=== PATIENT | male | born 1995 | race Hispanic/Latino ===

== ENCOUNTER 2020-12-22 17:51 | Emergency (ER) | payer OTHER, MEDICAID, SELFPAY ==
--- NOTE | 2020-12-22 17:55 | ED.PSYCH ---
HPI - Psych <Zack Reyes DO - Last Filed: 12/24/20 02:41> General Chief Complaint: Psychiatric Symptoms Stated Complaint: Phyc. Time Seen by Provider: 12/22/20 17:53 Source: patient, EMS and police Mode of arrival: EMS Limitations: no limitations History of Present Illness HPI Narrative: 24M without known medical history or social history presents by EMS/PD with chief complaint of aggressive and altered behavior. It is unclear who called 911, they suggest with girlfriend or mother. There is very little in the report other than he is acting strangely. Mother was gone for awhile and came home to find him acting very oddly. No known drug history. No obvious signs of trauma. MD complaint: altered mental status Onset (ago): hour(s) Duration: constant History of same: No Relieving factors: none Exacerbating factors: none Associated psychiatric symptoms: none Treatments prior to arrival: physical restraints Related Data Home Medications Medication Instructions Recorded Confirmed No Known Home Medications 12/23/20 12/23/20 Review of Systems <Zack Reyes DO - Last Filed: 12/24/20 02:41> Review of Systems Narrative: patient will not participate in ROS, elements in documentation are per family, EMS, PD ROS Unobtainable: Unobtainable due to mental condition and Unobtainable due to mental status/LOC Constitutional Constitutional: Denies chills, Denies fatigue, Denies fever(s), Denies frequent falls, Denies lethargy and Denies weakness Neurologic Neurologic: Reports behavioral changes, Denies confusion, Denies frequent falls and Denies weakness Psychiatric Psychiatric: Denies anxiety, Reports behavioral changes, Denies confusion, Denies depression, Denies homicidal ideation and Denies suicidal ideation Endocrine Endocrine: Denies fatigue and Denies flushing Hematologic/Lymphatic Hematologic/Lymphatic: Denies easy bruising Allergic/Immunologic Allergic/Immunologic: Denies urticaria Patient History <Zack Reyes DO - Last Filed: 12/24/20 02:41> Surgical History History of third molar tooth extraction Social History Smoking Status: Unknown if ever smoked Exam <Zack Reyes DO - Last Filed: 12/24/20 02:41> Narrative Exam Narrative: GENERAL: [24] year old patient appears stated age. Well-nourished, well-developed patient, agitated, yelling and screaming nonsensical over bit HEAD: Atraumatic. Normocephalic. EYES: Pupils equal round and reactive. Extraocular motions intact. No scleral icterus. No injection or drainage. ENT: Nose without bleeding, purulent drainage. Throat without erythema, tonsillar hypertrophy or exudate. Airway patent. NECK: Trachea midline. Non tender CARDIOVASCULAR: Regular rate and rhythm without murmurs, gallops, or rubs. RESPIRATORY: Clear to auscultation. Breath sounds equal bilaterally. No wheezes, rales, or rhonchi. GASTROINTESTINAL: Abdomen soft, non-tender, nondistended. EXTREMITIES: No edema or joint tenderness. BACK: Nontender without deformity or crepitance. No flank tenderness. NEURO: Moving all extremities without obvious difficulty. SKIN: No rash or erythema of visible areas Initial Vital Signs Initial Vital Signs: Vital Signs Temperature 99.0 F 12/22/20 18:21 Pulse Rate 122 H 12/22/20 18:21 Respiratory Rate 22 12/22/20 18:21 Blood Pressure 109/69 12/22/20 18:21 Pulse Oximetry 100 12/22/20 18:21 <Lesia Garner MD - Last Filed: 12/23/20 14:43> Initial Vital Signs Initial Vital Signs: Vital Signs Temperature 99.0 F 12/22/20 18:21 Pulse Rate 122 H 12/22/20 18:21 Respiratory Rate 22 12/22/20 18:21 Blood Pressure 109/69 12/22/20 18:21 Pulse Oximetry 100 12/22/20 18:21 Course <Zack Reyes DO - Last Filed: 12/24/20 02:41> Course Course Narrative: Patient taken directly to room 13, multiple attempts at verbal deescalation failed. Patient clearly a risk to himself and others and as a result chemical restraints employed soon after his arrival Orders Ordered: Discontinued Medications Diphenhydramine HCl (Diphenhydramine 50 Mg/Ml Vial) 50 mg IM NOW ONE Stop: 12/22/20 17:52 Last Admin: 12/22/20 18:21 Dose: 50 mg Documented by: JEN Haloperidol (Haloperidol 5 Mg/Ml Vial) 10 mg IM NOW ONE Stop: 12/22/20 17:52 Last Admin: 12/22/20 18:21 Dose: 10 mg Documented by: JEN Reevaluation(s) Reevaluation #1: patient had a rather impressive change in behavior after Haldol / Ativan given. He awake and alert, speaking clearly and apologetic for his disruptive actions. He admits that he took some mushrooms which he had had in his possession for upwards of a year. He denies any suicidal or homicidal ideation. He is open to a speaking with his mom and wants to stay to seek out mental health evaluation. Consultations Consultation #1: Mother arrives shortly after patient arrival and we are able to speak in a separate room as patient is still too agitated. She states that he has no established mental health illness and she does not think he has ever used a drug other than marijuana. She states that he was in his normal state of health when she left earlier today and she came home to find him in this state. She states that he his had significant stressors at home including the untimely an unexpected of both his biological and stepfather and is going through a very stressful court case of his own which has consumed all of his inheritance due to legal fees. She states he has made no suicidal or homicidal comments to her Vital Signs Vital signs: Vital Signs - 8 hr 12/22/20 18:21 12/22/20 18:36 12/22/20 19:25 Temperature 99.0 F Pulse Rate 122 H 90 89 Respiratory Rate 22 14 16 Blood Pressure 109/69 145/79 H Pulse Oximetry 100 97 100 <Lesia Garner MD - Last Filed: 12/23/20 14:43> Orders Ordered: Discontinued Medications Diphenhydramine HCl (Diphenhydramine 50 Mg/Ml Vial) 50 mg IM NOW ONE Stop: 12/22/20 17:52 Last Admin: 12/22/20 18:21 Dose: 50 mg Documented by: JEN Haloperidol (Haloperidol 5 Mg/Ml Vial) 10 mg IM NOW ONE Stop: 12/22/20 17:52 Last Admin: 12/22/20 18:21 Dose: 10 mg Documented by: JEN Vital Signs Vital signs: Vital Signs - 8 hr 12/22/20 18:21 12/22/20 18:36 12/22/20 19:25 Temperature 99.0 F Pulse Rate 122 H 90 89 Respiratory Rate 22 14 16 Blood Pressure 109/69 145/79 H Pulse Oximetry 100 97 100 MDM - Psych <Zack DO Eric - Last Filed: 12/24/20 02:41> Lab Data Result diagrams: 12/22/20 19:10 12/22/20 19:10 Labs: Lab Results 12/22/20 12/22/20 12/22/20 Range/Units 19:10 19:10 19:10 WBC 12.8 H (4.5-11.0) X10^3/uL RBC 4.99 (4.5-5.9) X10^6/uL Hgb 15.4 (13.5-17.5) g/dL Hct 45.3 (41-53) % MCV 90.9 (80-100) fL MCH 30.9 (26-34) PG MCHC 34.0 (30-36) % RDW 12.6 (11.6-14.8) % Plt Count 287 (150-400) X10^3/uL Neut % (Auto) 78.0 H (50-75) % Lymph % (Auto) 14.5 L (25-40) % [place] % (Auto) 7.1 (3-14) % Eos % (Auto) 0.0 L (2-4) % Baso % (Auto) 0.4 (0-2) % Neut # (Auto) 26292 H (3701-2969) /uL Lymph # (Auto) 1900 (0134-2353) /uL [place] # (Auto) 900 (0-900) /uL Eos # (Auto) 0 (0-450) /uL Baso # (Auto) 0 (0-100) /uL Sodium 136 L (137-145) mmol/L Potassium 3.9 (3.4-5.1) mmol/L Chloride 101 (98-107) mmol/L Carbon Dioxide 22 (22-32) mmol/L BUN 11 (9-20) mg/dL Creatinine 0.82 (0.66-1.25) mg/dL Estimated GFR > 60.0 (>60) mL/min BUN/Creatinine Ratio 13.4 (6-22) Glucose 107 H (70-100) mg/dL Calcium 9.6 (8.4-10.2) mg/dL Total Bilirubin 2.1 H (0.2-1.3) mg/dL AST 48 (17-59) IU/L ALT 40 (<50) IU/L Alkaline Phosphatase 107 (38-126) U/L Total Creatine Kinase 586 H (55-170) U/L CK-MB (CK-2) 2.25 (<2.37) ng/mL CK-MB (CK-2) Rel Index 0.4 L (1.5-5.0) % Troponin I < 0.012 (0.01-0.034) ng/mL Total Protein 8.5 H (6.3-8.2) g/dL Albumin 4.9 (3.5-5.0) g/dL Globulin 3.6 (1.7-4.1) g/dL Albumin/Globulin Ratio 1.4 (1.0-2.8) TSH 2.20 (0.47-4.68) uIU/mL Salicylates < 1.0 (<20) mg/dL U Opiates 300ng/mL cut (Negative) Ur Oxycodone Screen (Negative) Urine Methadone Screen (Negative) Acetaminophen < 10 L (10-30) ug/mL Ur Barbiturates Screen (Negative) U Tricyclic Antidepress (Negative) Ur Phencyclidine Scrn (Negative) Ur Amphetamines Screen (Negative) U Methamphetamines Scrn (Negative) Ur MDMA Scrn (Ecstasy) (Negative) U Benzodiazepines Scrn (Negative) Urine Cocaine Screen (Negative) U Marijuana (THC) Screen (Negative) 12/22/20 Range/Units 20:23 WBC (4.5-11.0) X10^3/uL RBC (4.5-5.9) X10^6/uL Hgb (13.5-17.5) g/dL Hct (41-53) % MCV (80-100) fL MCH (26-34) PG MCHC (30-36) % RDW (11.6-14.8) % Plt Count (150-400) X10^3/uL Neut % (Auto) (50-75) % Lymph % (Auto) (25-40) % [place] % (Auto) (3-14) % Eos % (Auto) (2-4) % Baso % (Auto) (0-2) % Neut # (Auto) (5672-2991) /uL Lymph # (Auto) (6132-0923) /uL [place] # (Auto) (0-900) /uL Eos # (Auto) (0-450) /uL Baso # (Auto) (0-100) /uL Sodium (137-145) mmol/L Potassium (3.4-5.1) mmol/L Chloride (98-107) mmol/L Carbon Dioxide (22-32) mmol/L BUN (9-20) mg/dL Creatinine (0.66-1.25) mg/dL Estimated GFR (>60) mL/min BUN/Creatinine Ratio (6-22) Glucose (70-100) mg/dL Calcium (8.4-10.2) mg/dL Total Bilirubin (0.2-1.3) mg/dL AST (17-59) IU/L ALT (<50) IU/L Alkaline Phosphatase (38-126) U/L Total Creatine Kinase (55-170) U/L CK-MB (CK-2) (<2.37) ng/mL CK-MB (CK-2) Rel Index (1.5-5.0) % Troponin I (0.01-0.034) ng/mL Total Protein (6.3-8.2) g/dL Albumin (3.5-5.0) g/dL Globulin (1.7-4.1) g/dL Albumin/Globulin Ratio (1.0-2.8) TSH (0.47-4.68) uIU/mL Salicylates (<20) mg/dL U Opiates 300ng/mL cut Negative (Negative) Ur Oxycodone Screen Negative (Negative) Urine Methadone Screen Negative (Negative) Acetaminophen (10-30) ug/mL Ur Barbiturates Screen Negative (Negative) U Tricyclic Antidepress Negative (Negative) Ur Phencyclidine Scrn Negative (Negative) Ur Amphetamines Screen Negative (Negative) U Methamphetamines Scrn Negative (Negative) Ur MDMA Scrn (Ecstasy) Negative (Negative) U Benzodiazepines Scrn Negative (Negative) Urine Cocaine Screen Negative (Negative) U Marijuana (THC) Screen Positive H (Negative) Urine Dip Bedside Urine Glucose Negative Bedside Urine Bilirubin - Negative Bedside Urine Ketone - Negative Urine Specific [place] 1.010 Bedside Urine Occult Blood - Negative Bedside Urine pH 7.0 Bedside Urine Protein - Negative Bedside Urine Urobilinogen - Negative Bedside Urine Nitrite - Negative Bedside Urine Leukocytes - Negative Esterase <Lesia Garner MD - Last Filed: 12/23/20 14:43> Medical Records Attestation: I reviewed the patient's medical records. Lab Data Attestation: I reviewed the patient's lab results. Labs: Lab Results 12/22/20 12/22/20 12/22/20 Range/Units 19:10 19:10 19:10 WBC 12.8 H (4.5-11.0) X10^3/uL RBC 4.99 (4.5-5.9) X10^6/uL Hgb 15.4 (13.5-17.5) g/dL Hct 45.3 (41-53) % MCV 90.9 (80-100) fL MCH 30.9 (26-34) PG MCHC 34.0 (30-36) % RDW 12.6 (11.6-14.8) % Plt Count 287 (150-400) X10^3/uL Neut % (Auto) 78.0 H (50-75) % Lymph % (Auto) 14.5 L (25-40) % [place] % (Auto) 7.1 (3-14) % Eos % (Auto) 0.0 L (2-4) % Baso % (Auto) 0.4 (0-2) % Neut # (Auto) 34241 H (2546-5181) /uL Lymph # (Auto) 1900 (2488-7022) /uL [place] # (Auto) 900 (0-900) /uL Eos # (Auto) 0 (0-450) /uL Baso # (Auto) 0 (0-100) /uL Sodium 136 L (137-145) mmol/L Potassium 3.9 (3.4-5.1) mmol/L Chloride 101 (98-107) mmol/L Carbon Dioxide 22 (22-32) mmol/L BUN 11 (9-20) mg/dL Creatinine 0.82 (0.66-1.25) mg/dL Estimated GFR > 60.0 (>60) mL/min BUN/Creatinine Ratio 13.4 (6-22) Glucose 107 H (70-100) mg/dL Calcium 9.6 (8.4-10.2) mg/dL Total Bilirubin 2.1 H (0.2-1.3) mg/dL AST 48 (17-59) IU/L ALT 40 (<50) IU/L Alkaline Phosphatase 107 (38-126) U/L Total Creatine Kinase 586 H (55-170) U/L CK-MB (CK-2) 2.25 (<2.37) ng/mL CK-MB (CK-2) Rel Index 0.4 L (1.5-5.0) % Troponin I < 0.012 (0.01-0.034) ng/mL Total Protein 8.5 H (6.3-8.2) g/dL Albumin 4.9 (3.5-5.0) g/dL Globulin 3.6 (1.7-4.1) g/dL Albumin/Globulin Ratio 1.4 (1.0-2.8) TSH 2.20 (0.47-4.68) uIU/mL Salicylates < 1.0 (<20) mg/dL U Opiates 300ng/mL cut (Negative) Ur Oxycodone Screen (Negative) Urine Methadone Screen (Negative) Acetaminophen < 10 L (10-30) ug/mL Ur Barbiturates Screen (Negative) U Tricyclic Antidepress (Negative) Ur Phencyclidine Scrn (Negative) Ur Amphetamines Screen (Negative) U Methamphetamines Scrn (Negative) Ur MDMA Scrn (Ecstasy) (Negative) U Benzodiazepines Scrn (Negative) Urine Cocaine Screen (Negative) U Marijuana (THC) Screen (Negative) 12/22/20 Range/Units 20:23 WBC (4.5-11.0) X10^3/uL RBC (4.5-5.9) X10^6/uL Hgb (13.5-17.5) g/dL Hct (41-53) % MCV (80-100) fL MCH (26-34) PG MCHC (30-36) % RDW (11.6-14.8) % Plt Count (150-400) X10^3/uL Neut % (Auto) (50-75) % Lymph % (Auto) (25-40) % [place] % (Auto) (3-14) % Eos % (Auto) (2-4) % Baso % (Auto) (0-2) % Neut # (Auto) (0612-0581) /uL Lymph # (Auto) (8742-2492) /uL [place] # (Auto) (0-900) /uL Eos # (Auto) (0-450) /uL Baso # (Auto) (0-100) /uL Sodium (137-145) mmol/L Potassium (3.4-5.1) mmol/L Chloride (98-107) mmol/L Carbon Dioxide (22-32) mmol/L BUN (9-20) mg/dL Creatinine (0.66-1.25) mg/dL Estimated GFR (>60) mL/min BUN/Creatinine Ratio (6-22) Glucose (70-100) mg/dL Calcium (8.4-10.2) mg/dL Total Bilirubin (0.2-1.3) mg/dL AST (17-59) IU/L ALT (<50) IU/L Alkaline Phosphatase (38-126) U/L Total Creatine Kinase (55-170) U/L CK-MB (CK-2) (<2.37) ng/mL CK-MB (CK-2) Rel Index (1.5-5.0) % Troponin I (0.01-0.034) ng/mL Total Protein (6.3-8.2) g/dL Albumin (3.5-5.0) g/dL Globulin (1.7-4.1) g/dL Albumin/Globulin Ratio (1.0-2.8) TSH (0.47-4.68) uIU/mL Salicylates (<20) mg/dL U Opiates 300ng/mL cut Negative (Negative) Ur Oxycodone Screen Negative (Negative) Urine Methadone Screen Negative (Negative) Acetaminophen (10-30) ug/mL Ur Barbiturates Screen Negative (Negative) U Tricyclic Antidepress Negative (Negative) Ur Phencyclidine Scrn Negative (Negative) Ur Amphetamines Screen Negative (Negative) U Methamphetamines Scrn Negative (Negative) Ur MDMA Scrn (Ecstasy) Negative (Negative) U Benzodiazepines Scrn Negative (Negative) Urine Cocaine Screen Negative (Negative) U Marijuana (THC) Screen Positive H (Negative) Urine Dip Bedside Urine Glucose Negative Bedside Urine Bilirubin - Negative Bedside Urine Ketone - Negative Urine Specific [place] 1.010 Bedside Urine Occult Blood - Negative Bedside Urine pH 7.0 Bedside Urine Protein - Negative Bedside Urine Urobilinogen - Negative Bedside Urine Nitrite - Negative Bedside Urine Leukocytes - Negative Esterase MDM Narrative Medical decision making narrative: Patient is awake alert and very apologetic about behaviors last night. He is asking for help with counseling and depression. He is given resources with Ray as well as primary care physician with [facility] here [facility]. He is not acutely suicidal or homicidal and is safe for home discharge. Restraint Elfy-mf-Nayb <Zack Reyes, DO - Last Filed: 12/24/20 02:41> Restraint Qqba-wo-Ifqt Evaluation Vzvy-ie-Wypi #1: Date: 12/22/20 Time: 18:00 Patient Appearance: Disheveled Level of Consciousness: Awake, Inappropriate and Restless Speech Pattern: Animated, Includes Profanity and Pressured Mood Description: Angry and Anxious Ability to Follow Directions: Poor Hallucination Type: None Thought Process: Other Respirations: Normal respiratory rate Cardiac: Regular Rate and Regular Rhythm Circulation: Moves all extremities Behavior necessitating restraint: Agitated, Confusion and ETOH/Substance Abuse Restraint risks explained to patient: Yes Restraint risks explained to family: No Reaction to Intervention: Restless, Indicating Needs and Agitated, Constant Movement Restraint Needs: Continue Restraints Discharge Plan Departure Patient Disposition: Home Clinical Impression: Suicidal ideation Depression Qualifiers: Depression Type: unspecified Qualified Code(s): F32.9 - Major depressive disorder, single episode, unspecified Instructions: Depression Activity Restrictions/Additional Instructions: Thank you for coming in today It sounds like you had a very challenging experience last night. I would strongly recommend not doing mushrooms again. If you find that things are getting worse feel free to call the mental health crisis line at [phone]. They will be calling you tomorrow to touch bases To follow-up with a mental health provider to help with counseling if needed, please call Aníbal Moffett at [phone] Your mom is helping you set up an appointment with the primary care physician If things are getting worse if you feel like you need to hurt herself or hurt somebody else please feel free to return to the ER and we will help Prescriptions: No Action No Known Home Medications RF: 0
[2020-12-22 18:21] VITALS: BP 109/69; PULSE 122; RESP 22; TEMP 37.2; O2SAT 100
[2020-12-22] MEDS: LORazepam 2 MG/ML INJ (18:21)
[2020-12-22] MEDS: HALOPERIDOL 5 MG/ML VIAL 10 MG IM (18:21)
[2020-12-22] MEDS: diphenhydrAMINE 50 MG/ML VIAL IM (18:21)
[2020-12-22 18:36] VITALS: PULSE 90; RESP 14; O2SAT 97
--- NOTE | 2020-12-22 18:56 | PC.NURSE ---
1849 pt now alert, oriented, states he took mushrooms, states I apologize for the disturbance, following commands, taking po fluids. Pts mother called at his request, bedside
--- NOTE | 2020-12-22 19:13 | PC.NURSE ---
1909 Mother bedside, pt remains alert, oriented, cooperative, taking po fluids
[2020-12-22 19:24] LABS: Add Manual Diff / Slide Review NO; Basophils Absolute Auto 0 /uL (0-100); Basophils Percent Auto 0.4 % (0-2); Eosinophils Absolute Auto 0 /uL (0-450); Hematocrit 45.3 % (41-53); Hemoglobin 15.4 g/dL (13.5-17.5); Lymphocytes Absolute Auto 1900 /uL (1100-4500); Lymphocytes Percent Auto 14.5 % (25-40); Mean Corpuscular Hemoglobin 30.9 PG (26-34); Mean Corpuscular Volume 90.9 fL (80-100); Monocytes Absolute Auto 900 /uL (0-900); Monocytes Percent Auto 7.1 % (3-14); Neutrophils Absolute Auto 10000 /uL (1500-7000); Platelet Count 287 X10^3/uL (150-400); Red Blood Cell Count 4.99 X10^6/uL (4.5-5.9); Red Cell Distribution Width 12.6 % (11.6-14.8); White Blood Cell Count 12.8 X10^3/uL (4.5-11.0)
[2020-12-22 19:25] VITALS: BP 145/79; PULSE 89; RESP 16; O2SAT 100
[2020-12-22 19:35] LABS: Acetaminophen < 10 ug/mL (10-30); Alanine Aminotransferase 40 IU/L (<50); Albumin 4.9 g/dL (3.5-5.0); Albumin Globulin Ratio 1.4 (1.0-2.8); Alkaline Phosphatase 107 U/L (38-126); Aspartate Aminotransferase 48 IU/L (17-59); BUN Creatinine Ratio 13.4 (6-22); Bilirubin Total 2.1 mg/dL (0.2-1.3); Blood Urea Nitrogen 11 mg/dL (9-20); Calcium 9.6 mg/dL (8.4-10.2); Carbon Dioxide 22 mmol/L (22-32); Chloride 101 mmol/L (98-107); Creatine Kinase 586 U/L (55-170); Estimated Glomerular Filt Rate > 60.0 mL/min (>60); Globulin 3.6 g/dL (1.7-4.1); Glucose 107 mg/dL (70-100); HEMOLYSIS 39 (0-50); Potassium 3.9 mmol/L (3.4-5.1); Salicylate < 1.0 mg/dL (<20); Sodium 136 mmol/L (137-145); Total Protein 8.5 g/dL (6.3-8.2)
[2020-12-22 19:47] LABS: Troponin I < 0.012 ng/mL (0.01-0.034)
--- NOTE | 2020-12-22 19:47 | PC.NURSE ---
1947 Pt remains alert, cooperative, discussed plan of care with MD/Mother, pt expresses desire to seek voluntary mental health treatment, remains in high visibility room, verbally contracts for safety while in ED
[2020-12-22 19:50] LABS: CKMB % Relative Index 0.4 % (1.5-5.0); Creatine Kinase MB 2.25 ng/mL (<2.37)
[2020-12-22 20:32] LABS: UR Morphine/Opiate cutoff 300 Negative (Negative); Ur Creatinine Normal (Normal); Ur Specific Gravity Normal (Normal); Urine Amphetamines Negative (Negative); Urine Barbiturates Negative (Negative); Urine Benzodiazepines Negative (Negative); Urine Cocaine Negative (Negative); Urine MDMA Negative (Negative); Urine Methadone Negative (Negative); Urine Methamphetamines Negative (Negative); Urine Oxycodone Negative (Negative); Urine Phencyclidine Negative (Negative); Urine Tetrahydrocannabinol Positive (Negative); Urine Tricyclic Antidepressant Negative (Negative); Urine pH Normal (Normal)
--- NOTE | 2020-12-23 06:37 | PC.NURSE ---
Pt has slept all night. Alana to walk to the bathroom once. Calm/cooperative.
--- NOTE | 2020-12-23 10:42 | PC.NURSE ---
pt has life stress, pt would like info/resources from [employer]
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
[2020-12-23 14:41] VITALS: BP 146/86; PULSE 73; RESP 18; O2SAT 98
== END 2020-12-23 14:50 | disposition home or self-care (01) ==
PROVIDERS: Emergency Medicine; Emergency Provider Emergency Medicine
DX: R45.851 Suicidal ideations (principal); F32.9 Major depressive disorder, single episode, unspecified
CPT/HCPCS: 36415; 80053; 80305; 80329; 81003; 82550; 82553; 84443; 84484; 85025; 96372; 99284; 99285; G0480; J1200; J1630; J2060

== ENCOUNTER → 2023-09-08 15:43 | Outpatient (CLI) | payer OTHER, MEDICAID, SELFPAY ==
[2023-09-08 17:19] LABS: Hematocrit 43.9 % (41-53); Hemoglobin 15.1 g/dL (13.5-17.5); Mean Corpuscular HGB Conc 34.5 % (30-36); Mean Corpuscular Hemoglobin 31.9 PG (26-34); Mean Corpuscular Volume 92.5 fL (80-100); Platelet Count 331 X10^3/uL (150-400); Red Blood Cell Count 4.75 X10^6/uL (4.5-5.9); White Blood Cell Count 9.2 X10^3/uL (4.5-11.0)
[2023-09-08 18:03] LABS: HEMOLYSIS < 15 (0-50); Iron 153 ug/dL (49-181)
[2023-09-08 18:04] LABS: Alanine Aminotransferase 33 IU/L (<50); Albumin 4.7 g/dL (3.5-5.0); Albumin Globulin Ratio 1.4 (1.0-2.8); Alkaline Phosphatase 97 U/L (38-126); BUN Creatinine Ratio 15.7 (6-22); Bilirubin Total 1.8 mg/dL (0.2-1.3); Blood Urea Nitrogen 11 mg/dL (9-20); Calcium 9.8 mg/dL (8.4-10.2); Carbon Dioxide 29 mmol/L (22-32); Chloride 96 mmol/L (98-107); Estimated Glomerular Filt Rate > 60 mL/min (>60); Globulin 3.3 g/dL (1.7-4.1); Glucose 104 mg/dL (70-100); HEMOLYSIS < 15 (0-50); Potassium 4.4 mmol/L (3.4-5.1); Sodium 135 mmol/L (137-145)
[2023-09-08 18:13] LABS: Percent Iron Saturation 45 % (20-50); Total Iron Binding Capacity 343 ug/dL (261-462); Transferrin 316 mg/dL (206-381)
[2023-09-08 18:36] LABS: TSH w/ Reflex to FT4 0.94 uIU/mL (0.47-4.68)
[2023-09-08 18:39] LABS: Ferritin 42 ng/mL (18-464)
[2023-09-08 20:03] LABS: Neutrophils Absolute Manual 6440 /uL (3000-5900); RBC Morphology Normal Morphology; Total Cells Counted 100
[2023-09-10 16:09] LABS: Aspartate Aminotransferase 38 IU/L (17-59)
== END ==
PROVIDERS: PCP Nurse Practitioner; Referring Provider Family Medicine; Visit Provider Family Medicine
DX: G25.81 Restless legs syndrome (principal); Z72.0 Tobacco use
CPT/HCPCS: 36415; 80053; 82728; 83540; 83550; 84443; 85025

== ENCOUNTER → 2024-07-21 13:00 | Outpatient (CLI) | payer OTHER, MEDICAID, SELFPAY ==
--- NOTE | 2024-07-21 13:01 | DI.RAD.S_ITS ---
PROCEDURE: XR RIBS RT MIN 3V W CXR 1V INDICATIONS: right samaria/lat rib 6-8 tender/bruising TECHNIQUE: 2 views of the ribs were acquired, along with a single view chest. COMPARISON: None. FINDINGS: Surgical changes and devices: None. Bones and chest wall: No fractures or dislocations. No suspicious bony lesions. Overlying soft tissues appear unremarkable. Lungs and pleura: No pleural effusions or pneumothorax. Lungs appear clear. Mediastinum: Mediastinal contours appear normal. Heart size is normal. IMPRESSION: No displaced rib fracture or pneumothorax. Macro chest Dictated by: Karina Simeon MD, PhD on 07/21/2024 at 13:22 Approved by: Karina Simeon MD, PhD on 07/21/2024 at 13:22
== END ==
PROVIDERS: PCP Internal Medicine; Referring Provider Student in an Organized Health Care Education/Training Program; Visit Provider Student in an Organized Health Care Education/Training Program
DX: R07.81 Pleurodynia (principal)
CPT/HCPCS: 71101

== ENCOUNTER → 2024-12-04 12:43 | Outpatient (CLI) | payer OTHER, SELFPAY ==
--- NOTE | 2024-12-04 12:45 | DI.RAD.S_ITS ---
PROCEDURE: XR RIBS RT MIN 3V W CXR 1V INDICATIONS: Right-sided rib pain TECHNIQUE: 2 views of the ribs were acquired, along with a single view chest. COMPARISON: [facility], CR, XR RIBS RT MIN 3V W CXR 1V, 07/21/2024, 13:00. FINDINGS: Surgical changes and devices: None. Bones and chest wall: No fractures or dislocations. No suspicious bony lesions. Overlying soft tissues appear unremarkable. Lungs and pleura: No pleural effusions or pneumothorax. Lungs appear clear. Mediastinum: Mediastinal contours appear normal. Heart size is normal. IMPRESSION: No displaced rib fracture or pneumothorax. Approved by: Kwame Alva M.D. on 12/04/2024 at 15:45
== END ==
PROVIDERS: PCP Internal Medicine; Referring Provider Registered Nurse; Visit Provider Registered Nurse
DX: R07.81 Pleurodynia (principal)
CPT/HCPCS: 71101